=== PATIENT | male | born 1985 | race Two or more races ===

== ENCOUNTER 2017-01-10 22:53 | Emergency (ER) | payer BC, OTHER ==
[2017-01-10] MEDS ORDERED: Levofloxacin 500 MG Tab PO STA (23:32)
--- NOTE | 2017-01-10 23:39 | EDM.PDOC ---
ED HPI GENERAL MEDICAL PROBLEM - General Chief Complaint: Respiratory Problem Stated Complaint: COUGH/CONGESTION CHEST PAIN Time Seen by Provider: 01/10/17 23:33 - History of Present Illness INITIAL COMMENTS - FREE TEXT/NARRATIVE: he presents with cough, myalgias, fever. Generalized Body Aches Pain Score (Numeric/FACES): 8 - Related Data Allergies Allergy/AdvReac Type Severity Reaction Status Date / Time No Known Allergies Allergy Verified 01/10/17 23:25 Home Meds: Home Meds . [No Known Home Meds] 01/10/17 [History] Past Medical History Cardiovascular History: Denies: Cardiomyopathy, Hypertension, [place] Respiratory History: Denies: COPD Gastrointestinal History: Denies: Cirrhosis Endocrine/Metabolic History: Denies: Diabetes, Type I, Diabetes, Type II Social & Family History - Tobacco Use Smoking Cessation Information Given Comment: non smoker ED ROS GENERAL - Review of Systems Review Of Systems: See Below (as per HPI) Cardiovascular: Denies: Syncope GI/Abdominal: Denies: Abdominal Pain, Hematemesis, Hematochezia, Vomiting ED EXAM, GENERAL - Physical Exam Exam: See Below General Appearance: Alert, No Apparent Distress Ears: Normal TMs Nose: Normal Inspection Throat/Mouth: Normal Inspection Head: Atraumatic Neck: Normal Inspection Respiratory/Chest: No Respiratory Distress, Lungs Clear Course - Vital Signs Last Recorded V/S: Last Vital Signs Temp 98.1 F 01/10/17 23:26 Pulse 91 01/10/17 23:26 Resp 18 01/10/17 23:26 BP 142/76 H 01/10/17 23:26 Pulse Ox 97 01/10/17 23:26 - Orders/Labs/Meds Orders: Active Orders 24 hr Category Date Time Status Levofloxacin [Levaquin] Med 01/10/17 23:32 Stat 500 mg PO NOW STA Departure - Departure Time of Disposition: 23:39 Disposition: Home, Self-Care 01 Condition: Good Clinical Impression: Bronchitis - Discharge Information Forms: ED Department Discharge Additional Instructions: levaquin 500 mg daily x 6 days off work until January 12Monday recheck if not improving blood pressure is slightly elevated; a recheck within a month is recommended. Drew Monroy MD - My Orders Last 24 Hours: My Active Orders 01/10/17 23:32 Levofloxacin [Levaquin] 500 mg PO NOW STA - Assessment/Plan Last 24 Hours: My Active Orders 01/10/17 23:32 Levofloxacin [Levaquin] 500 mg PO NOW STA
[2017-01-11 00:13] VITALS: BP 128/75
== END 2017-01-11 00:13 | disposition home or self-care (01) ==
LOC: MW.ED 22:53
DX: J40 Bronchitis, not specified as acute or chronic (principal)
CPT/HCPCS: 99283; A9270

== ENCOUNTER 2017-03-26 10:30 | Emergency (ER) | payer OTHER ==
[2017-03-26] MEDS ORDERED: Ketorolac 60 MG/2 ML SDV IM ONE (10:50)
--- NOTE | 2017-03-26 10:56 | EDM.PDOC ---
ED HPI GENERAL MEDICAL PROBLEM - General Chief Complaint: Back Pain or Injury Stated Complaint: LOWER/BACK ABDMONAL PAIN RIGHT SIDE Time Seen by Provider: 03/26/17 10:36 - History of Present Illness INITIAL COMMENTS - FREE TEXT/NARRATIVE: HISTORY AND PHYSICAL: History of present illness: The patient is a healthy 31-year-old male who has no local clinic provider and presents with complaints of right lower back muscle pain strain after doing stretching exercises this morning. According to the patient he had an injury many years ago that involved the muscle and since that time he has been trying to practice good body mechanics both at home and at work and does stretching of his back every morning when he wakes up. The patient denies any recent injuries such as falls or trauma to his back and had a normal day yesterday. When he woke this morning he got out of bed and started doing his usual stretching and twisting exercises and felt sudden pain in his right lower back area. He had no flank pain and he had no bowel or bladder disturbances. He had no hematuria or dysuria and has no history. The pain is localized only on the right lumbar back area and it is deep and does not radiate to his leg. He has no neurosensory changes in his lower extremities. The patient states that when he sits still it is better and certain movements will trigger the pain to be worse. He did not take any medication prior to coming here. Review of systems: As per history of present illness and below otherwise all systems reviewed and negative. Past medical history: As per history of present illness and as reviewed below otherwise noncontributory. Surgical history: As per history of present illness and as reviewed below otherwise noncontributory. Social history: No reported history of drug or alcohol abuse. Family history: As per history of present illness and as reviewed below otherwise noncontributory. Physical exam: Gen.: Well-developed well-nourished man who looks uncomfortable with certain movements but is nontoxic and ambulated into the ED without assistance HEENT: Atraumatic, normocephalic, negative for conjunctival pallor or scleral icterus, mucous membranes moist, throat clear, neck supple, nontender, trachea midline. Lungs: Clear to auscultation, breath sounds equal bilaterally, chest nontender. Heart: S1S2, regular rate and rhythm no overt murmurs Abdomen: Soft, nondistended, nontender. NABS. Negative for costovertebral tenderness. Pelvis: Deferred Genitourinary: Deferred. Rectal: Deferred. Extremities: Atraumatic, negative for cords or calf pain. Neurovascular unremarkable. Neuro: Awake, alert, oriented. Cranial nerves II through XII unremarkable. Cerebellum unremarkable. Motor and sensory unremarkable throughout. Exam nonfocal. Back: There are no midline step-offs in his defects of the thoracic or lumbar spine and there is only minimal tenderness at palpation of the right paraspinal musculature and I'm unable to reproduce the pain exactly. There is no pain in the gluteal areas Diagnostics: I discussed with the patient plain x-rays which at this time would likely be low yield and he defers them at this time. Therapeutics: Toradol Norflex I discussed with the patient that as this is likely muscular in etiology we will go ahead and treat symptomatically and I advised strongly that he follow- up in the clinic in the next few days to see if the symptoms are improving and to pursue further testing and evaluation as indicated. I've cautioned him on reasons to return to the ER. I will give him prescriptions for home and have advised ice for the next 8 hours and then switching to heat Impression: Lumbar muscle sprain strain Definitive disposition and diagnosis as appropriate pending reevaluation and review of above. Right Lower Back Pain Score (Numeric/FACES): 8 - Related Data Allergies Allergy/AdvReac Type Severity Reaction Status Date / Time No Known Allergies Allergy Verified 03/26/17 10:42 Home Meds: Home Meds . [No Known Home Meds] 01/10/17 [History] Past Medical History - Past Health History Medical/Surgical History: Denies Medical/Surgical History Social & Family History - Family History Family Medical History: Noncontributory - Tobacco Use Smoking Status *Q: Never Smoker - Caffeine Use Caffeine Use: Reports: Soda - Recreational Drug Use Recreational Drug Use: No ED ROS GENERAL - Review of Systems Review Of Systems: ROS reveals no pertinent complaints other than HPI. ED EXAM, GENERAL - Physical Exam Exam: See Below (See dictation) Course - Vital Signs Last Recorded V/S: Last Vital Signs Temp 36.6 C 03/26/17 10:38 Pulse 87 03/26/17 10:38 Resp 20 03/26/17 10:38 BP 121/62 10/01/17 10:38 Pulse Ox 96 03/26/17 10:38 - Orders/Labs/Meds Orders: Active Orders 24 hr Category Date Time Status Ketorolac [Toradol] Med 03/26/17 10:50 Once 60 mg IM ONETIME ONE Orphenadrine [Norflex] Med 03/26/17 10:50 Once 60 mg IM ONETIME ONE Departure - Departure Time of Disposition: 10:55 Disposition: Home, Self-Care 01 Condition: Good Clinical Impression: Musculoskeletal back pain Lumbar back pain Qualifiers: Chronicity: acute Back pain laterality: right Sciatica presence: without sciatica Qualified Code(s): M54.5 - Low back pain - Discharge Information Referrals: PCP,None [Primary Care Provider] - Additional Instructions: The following information is given to patients seen in the emergency department who are being discharged to home. This information is to outline your options for follow-up care. We provide all patients seen in our emergency department with a follow-up referral. The need for follow-up, as well as the timing and circumstances, are variable depending upon the specifics of your emergency department visit. If you don't have a primary care physician on staff, we will provide you with a referral. We always advise you to contact your personal physician following an emergency department visit to inform them of the circumstance of the visit and for follow-up with them and/or the need for any referrals to a consulting specialist. The emergency department will also refer you to a specialist when appropriate. This referral assures that you have the opportunity for followup care with a specialist. All of these measure are taken in an effort to provide you with optimal care, which includes your followup. Under all circumstances we always encourage you to contact your private physician who remains a resource for coordinating your care. When calling for followup care, please make the office aware that this follow-up is from your recent emergency room visit. If for any reason you are refused follow-up, please contact the [facility] emergency department at and ask to speak to the emergency department charge nurse. [facility] Primary care- Internal Medicine and Family [address] [id number] Please use ice for the next 8 hours to the area of discomfort and then switch to heat. Use medications as needed and prescribed and try to do very slow stretching exercise to try to open up the area. Please call and follow-up in our clinic in the next few days for reevaluation of this care plan and further testing as indicated. Return to ER as needed as discussed - My Orders Last 24 Hours: My Active Orders 03/26/17 10:50 Ketorolac [Toradol] 60 mg IM ONETIME ONE Orphenadrine [Norflex] 60 mg IM ONETIME ONE - Assessment/Plan Last 24 Hours: My Active Orders 03/26/17 10:50 Ketorolac [Toradol] 60 mg IM ONETIME ONE Orphenadrine [Norflex] 60 mg IM ONETIME ONE
[2017-03-26 11:57] VITALS: BP 115/68
== END 2017-03-26 11:55 | disposition home or self-care (01) ==
LOC: MW.ED 10:30
DX: S39.012A Strain of muscle, fascia and tendon of lower back, initial encounter (principal); X50.1XXA Overexertion from prolonged static or awkward postures, initial encounter
CPT/HCPCS: 81001; 96372; 99283; J1885; J2360

== ENCOUNTER 2017-09-06 18:00 | Emergency (ER) | payer OTHER ==
[2017-09-06] MEDS ORDERED: Ketorolac 60 MG/2 ML SDV IM ONE (18:25)
--- NOTE | 2017-09-06 18:31 | EDM.PDOC ---
ED HPI GENERAL MEDICAL PROBLEM - General Chief Complaint: Back Pain or Injury Stated Complaint: BACK PAIN Time Seen by Provider: 09/06/17 18:23 Source of Information: Reports: Patient History Limitations: Reports: No Limitations - History of Present Illness INITIAL COMMENTS - FREE TEXT/NARRATIVE: HISTORY AND PHYSICAL: History of present illness: Patient is a 31-year-old male who presents to the emergency room today with complaints of low back pain that radiates down the left leg. He states he tripped and fell landing his hands and knees, as he was getting up to stand he had back pain to the left low back. Denies hitting his head or any loss of consciousness. He has been ambulatory since this time, although it does cause pain. Gait is steady and even. Denies any dysuria. No bowel or bladder complaints. Denies any numbness, tingling, urinary incontinence or fecal incontinence. Review of systems: As per history of present illness and below otherwise all systems reviewed and negative. Past medical history: As per history of present illness and as reviewed below otherwise noncontributory. Surgical history: As per history of present illness and as reviewed below otherwise noncontributory. Social history: No reported history of drug or alcohol abuse. Family history: As per history of present illness and as reviewed below otherwise noncontributory. Physical exam: General: Well-developed and well-nourished 31-year-old male. Alert and oriented. Nontoxic appearing in no acute distress HEENT: Atraumatic, normocephalic, pupils reactive, negative for conjunctival pallor or scleral icterus, mucous membranes moist, throat clear, neck supple, nontender, trachea midline. Lungs: Clear to auscultation, breath sounds equal bilaterally, chest nontender. Heart: S1S2, regular rate and rhythm Abdomen: Soft, nondistended, nontender. Negative for masses or hepatosplenomegaly. Negative for costovertebral tenderness. Pelvis: Stable nontender. Genitourinary: Deferred. Rectal: Deferred. Extremities: Moves all extremities per self without difficulty or deficits. He is negative for cords or calf pain. Neurovascular unremarkable. C-spine/Back: No pinpoint vertebral tenderness upon palpation. No crepitus, step -offs or obvious deformities. Patient is ambulatory and able to walk on heels and toes. No urinary or fecal incontinence. Denies any numbness or tingling upper or lower extremities. Neuro: Awake, alert, oriented. Cranial nerves II through XII unremarkable. Cerebellum unremarkable. Motor and sensory unremarkable throughout. Exam nonfocal. Patient's back pain sounds musculature with sciatica. Will x-ray as he states he is unsure if his back hit anything during this fall. He does have a ride home , Norflex and Toradol given IM. Xray is normal. Will prescribe Cataflam and Flexeril, NRF. Education completed. Patient voices understanding and is agreeable to plan of care. He denies any questions at this time. Diagnostics: Lumbar back x-ray Therapeutics: Toradol, Norflex Impression: Low back pain with sciatica Muscular Spasm Plan: 1. Please take the medications as directed. Flexeril can cause drowsiness a do not take it will driving her needing to be functioning. Do not take any additional NSAIDs, such as ibuprofen or Aleve, with the Cataflam. Take with food to prevent stomach upset. You may take Tylenol as needed. 2. Ice and/or gentle head to the area. Gentle stretching. 3. Follow-up with your primary care provider in the next couple days. Return to the ED as needed and as discussed. Definitive disposition and diagnosis as appropriate pending reevaluation and review of above. Onset: Today Duration: Hour(s): Location: Reports: Back lower back Pain Score (Numeric/FACES): 8 - Related Data Allergies Allergy/AdvReac Type Severity Reaction Status Date / Time No Known Allergies Allergy Verified 09/06/17 18:06 Home Meds: Home Meds . [No Known Home Meds] 01/10/17 [History] Past Medical History - Past Health History Medical/Surgical History: Denies Medical/Surgical History Social & Family History - Family History Family Medical History: Noncontributory - Tobacco Use Smoking Status *Q: Never Smoker Second Hand Smoke Exposure: No - Caffeine Use Caffeine Use: Reports: Coffee, Soda - Recreational Drug Use Recreational Drug Use: No ED ROS GENERAL - Review of Systems Review Of Systems: ROS reveals no pertinent complaints other than HPI. ED EXAM,LOWER BACK PAIN/INJURY - Physical Exam Exam: See Below (See dictation) Course - Vital Signs Last Recorded V/S: Last Vital Signs Temp 97.5 F 09/06/17 18:07 Pulse 85 09/06/17 18:07 Resp 18 09/06/17 18:07 BP 142/85 H 09/06/17 18:07 Pulse Ox 97 09/06/17 18:07 - Orders/Labs/Meds Orders: Active Orders 24 hr Category Date Time Status Lumbar Spine 2 or 3V [CR] Stat Exams 09/06/17 18:25 Taken Orphenadrine [Norflex] Med 09/06/17 18:30 Active 60 mg IM Q12H Medication Orders Orphenadrine Citrate (Norflex) 60 mg IM Q12H DIXIE Last Admin: 09/06/17 18:44 Dose: 60 mg Meds: Medications Generic Name Dose Route Start Last Admin Trade Name Freq PRN Reason Stop Dose Admin Orphenadrine Citrate 60 mg 09/06/17 18:30 09/06/17 18:44 Norflex IM 60 mg Q12H DIXIE Administration Discontinued Medications Generic Name Dose Route Start Last Admin Trade Name Freq PRN Reason Stop Dose Admin Ketorolac Tromethamine 60 mg 09/06/17 18:25 09/06/17 18:43 Toradol IM 09/06/17 18:26 60 mg ONETIME ONE Administration Departure - Departure Time of Disposition: 19:05 Disposition: Home, Self-Care 01 Clinical Impression: Muscle spasm of back Low back pain with sciatica Qualifiers: Chronicity: acute Back pain laterality: left Sciatica laterality: sciatica of left side Qualified Code(s): M54.42 - Lumbago with sciatica, left side - Discharge Information Instructions: Muscle Cramps and Spasms, [id number], Back Pain, Adult, Easy-to -Read Referrals: PCP,None [Primary Care Provider] - Forms: ED Department Discharge Additional Instructions: My general discharge The following information is given to patients seen in the emergency department who are being discharged to home. This information is to outline your options for follow-up care. We provide all patients seen in our emergency department with a follow-up referral. The need for follow-up, as well as the timing and circumstances, are variable depending upon the specifics of your emergency department visit. If you don't have a primary care physician on staff, we will provide you with a referral. We always advise you to contact your personal physician following an emergency department visit to inform them of the circumstance of the visit and for follow-up with them and/or the need for any referrals to a consulting specialist. The emergency department will also refer you to a specialist when appropriate. This referral assures that you have the opportunity for follow-up care with a specialist. All of these measure are taken in an effort to provide you with optimal care, which includes your follow-up. Under all circumstances we always encourage you to contact your private physician who remains a resource for coordinating your care. When calling for follow-up care, please make the office aware that this follow-up is from your recent emergency room visit. If for any reason you are refused follow-up, please contact the [facility] Emergency Department at and asked to speak to the emergency department charge nurse. [facility] [address] [place] [id number] 1. Please take the medications as directed. Flexeril can cause drowsiness a do not take it will driving her needing to be functioning. Do not take any additional NSAIDs, such as ibuprofen or Aleve, with the Cataflam. Take with food to prevent stomach upset. You may take Tylenol as needed. 2. Ice and/or gentle head to the area. Gentle stretching. 3. Follow-up with your primary care provider in the next couple days. Return to the ED as needed and as discussed. - My Orders Last 24 Hours: My Active Orders 09/06/17 18:25 Lumbar Spine 2 or 3V [CR] Stat 09/06/17 18:30 Orphenadrine [Norflex] 60 mg IM Q12H - Assessment/Plan Last 24 Hours: My Active Orders 09/06/17 18:25 Lumbar Spine 2 or 3V [CR] Stat 09/06/17 18:30 Orphenadrine [Norflex] 60 mg IM Q12H
[2017-09-06 19:34] VITALS: BP 137/74
--- NOTE | 2017-09-07 10:43 | CR ---
EXAM DATE: 09/06/17 PATIENT'S AGE: 31 Patient: VINEET MAYER Facility: [place], [place] Site . Site : 1985 Study: XRay Spine Lumbar [id number]/14/2018 7:00:07 PM Ordering Physician: Doctor Gibson Final Report: INDICATION: Fall down stairs, low back pain. TECHNIQUE: Lumbar spine radiograph 3 view COMPARISON: None FINDINGS: Bones: Alignment is normal. No acute fractures or aggressive osseous lesions seen. Joints: Disc spaces are unremarkable. The facet joints are unremarkable in appearance. Soft tissues: Unremarkable. IMPRESSION: 1. No acute osseous injuries are identified. Dictated by Drew Coffey MD @ 09/06/2017 7:05:12 PM Dictated by: Drew Coffey MD @ 09/06/2017 19:05:16 (Electronic Signature) Report Signed by Proxy. MINA
== END 2017-09-06 19:37 | disposition home or self-care (01) ==
LOC: MW.ED 18:00
DX: M54.42 Lumbago with sciatica, left side (principal)
CPT/HCPCS: 72100; 96372; 99283; J1885; J2360

== ENCOUNTER 2017-09-16 19:09 | Emergency (ER) | payer OTHER ==
[2017-09-16] MEDS ORDERED: Ketorolac 60 MG/2 ML SDV IM ONE (19:39)
--- NOTE | 2017-09-16 19:45 | EDM.PDOC ---
ED HPI GENERAL MEDICAL PROBLEM - General Chief Complaint: Back Pain or Injury Stated Complaint: PT HAS LOWER BACK PAIN Time Seen by Provider: 09/16/17 19:40 Source of Information: Reports: Patient History Limitations: Reports: No Limitations - History of Present Illness INITIAL COMMENTS - FREE TEXT/NARRATIVE: HISTORY AND PHYSICAL: []31-year-old male presenting with lower back pain History of Present Illness: []10 days ago patient was seen in the emergency department after a fall to his hands and knees X-rays obtained at that time were negative he has seen a chiropractor He is slightly improved Review of Systems: As per history of present illness and below otherwise all systems reviewed and negative. Past medical history: As per history of present illness and as reviewed below otherwise noncontributory. Surgical history: As per history of present illness and as reviewed below otherwise noncontributory. Social history: No reported history of drug or alcohol abuse. Family history: As per history of present illness and as reviewed below otherwise noncontributory. Physical exam: Alert and oriented gentleman is quite pleasant moving quite deliberately and slowly. Answers questions in full sentences without any shortness of breath HEENT: Atraumatic, normocehpalic, pupils reactive, negative for conjunctival pallor or scleral icterus, mucous membranes moist, throat clear, neck supple, nontender, trachea midline. Lungs: Clear to auscultation, breath sounds equal bilaterally, chest non tender. Heart: S1S2, regular, negative for clicks, rubs, or JVD. Abdomen: Soft, nondistended, nontender. Negative for masses or hepatossplenmegaly. Negative for costovertebral tenderness.. Muscle spasm is present to the lower back. Pelvis: Stable nontender. Genitourinary: Deferred. Rectal: Deferred Extremities: Atraumatic, negative for cords or calf pain. Neurovascular unremarkable. Neuro: Awake, alert, oriented. Cranial nerves II through XII unremarkable. Cerebellum unremarkable. Motor and sensory unremarkable throughout. Exam nonfocal. Diagnostics: [] Therapeutics: []Toradol IM Norflex IM Impression: []Low back strain Plan: []Discharged home Follow-up with your primary care Referral to physical therapy follow-up with primary care Definitive disposition and diagnosis as appropriate pending reevaluation and review of above. Onset: Sudden Duration: Day(s): (10) Location: Reports: Back Quality: Reports: Ache Severity: Moderate Improves with: Reports: None Worsens with: Reports: None Low back Pain Score (Numeric/FACES): 9 - Related Data Allergies Allergy/AdvReac Type Severity Reaction Status Date / Time No Known Allergies Allergy Verified 09/16/17 19:23 Home Meds: Home Meds Cyclobenzaprine [Flexeril] 10 mg PO BID #20 tab 09/16/17 [Rx] Diclofenac Sodium [IJD: Diclofenac Sodium] 75 mg PO .TWICE DAILY W MEALS #20 tab.ec 09/16/17 [Rx] Past Medical History - Past Health History Medical/Surgical History: Denies Medical/Surgical History Social & Family History - Family History Family Medical History: Noncontributory - Tobacco Use Smoking Status *Q: Never Smoker Second Hand Smoke Exposure: No - Caffeine Use Caffeine Use: Reports: Coffee, Soda - Recreational Drug Use Recreational Drug Use: No ED ROS GENERAL - Review of Systems Review Of Systems: ROS reveals no pertinent complaints other than HPI. ED EXAM,LOWER BACK PAIN/INJURY - Physical Exam Exam: See Below (see dictation) Course - Vital Signs Last Recorded V/S: Last Vital Signs Temp 36.6 C 09/16/17 19:09 Pulse 103 H 09/16/17 19:09 Resp 18 09/16/17 19:09 BP 130/84 09/16/17 19:09 Pulse Ox 96 09/16/17 19:09 - Orders/Labs/Meds Orders: Active Orders 24 hr Category Date Time Status Ketorolac [Toradol] Med 09/16/17 19:39 Once 60 mg IM ONETIME ONE Orphenadrine [Norflex] Med 09/16/17 19:45 Ordered 60 mg IM Q12H Departure - Departure Time of Disposition: 19:45 Disposition: Home, Self-Care 01 Condition: Good Clinical Impression: Muscle spasm of back Low back pain with sciatica Qualifiers: Chronicity: acute Back pain laterality: left Sciatica laterality: sciatica of left side Qualified Code(s): M54.42 - Lumbago with sciatica, left side - Discharge Information Prescriptions: Cyclobenzaprine [Flexeril] 10 mg PO BID #20 tab Diclofenac Sodium [IJD: Diclofenac Sodium] 75 mg PO .TWICE DAILY W MEALS #20 tab.ec Instructions: Muscle Cramps and Spasms, [id number] Referrals: PCP,None [Primary Care Provider] - - My Orders Last 24 Hours: My Active Orders 09/16/17 19:39 Ketorolac [Toradol] 60 mg IM ONETIME ONE 09/16/17 19:45 Orphenadrine [Norflex] 60 mg IM Q12H - Assessment/Plan Last 24 Hours: My Active Orders 09/16/17 19:39 Ketorolac [Toradol] 60 mg IM ONETIME ONE 09/16/17 19:45 Orphenadrine [Norflex] 60 mg IM Q12H
[2017-09-16 21:40] VITALS: BP 129/79
== END 2017-09-16 20:33 | disposition home or self-care (01) ==
LOC: MW.ED 19:09
DX: S39.012A Strain of muscle, fascia and tendon of lower back, initial encounter (principal); M54.42 Lumbago with sciatica, left side
CPT/HCPCS: 96372; 99282; J1885; J2360